=== PATIENT | male | born 2000 | race Two or more races ===

== ENCOUNTER 2023-12-19 15:48 | Emergency (ER) | payer OTHER ==
[~2023-12-19] VITALS: Ht 180.3 cm; Wt 65.4 kg
[2023-12-19 17:59] LABS: BASO % 0.5 % (0.0-1.0); EOS # 0.1 10^3/uL (0.0-0.5); EOS % 0.7 % (0.0-3.0); HEMATOCRIT 45.4 % (42.0-52.0); HEMOGLOBIN 15.4 g/dl (13.5-17.5); LYMPH # 1.8 10^3/uL (1.5-5.0); LYMPH % 21.4 % (24.0-44.0); MEAN CORPUSCULAR HEMOGLOBIN 29.5 pg (27.0-33.0); MEAN CORPUSCULAR HGB CONC 33.9 g/dl (32.0-36.5); MONO # 0.6 10^3/uL (0.0-0.8); MONO % 6.5 % (2.0-8.0); NEUTROPHILS # 6.1 10^3/uL (1.5-8.5); NEUTROPHILS % 70.7 % (36.0-66.0); PLATELET COUNT, AUTOMATED 291 10^3/uL (150-450); RED BLOOD COUNT 5.22 10^6/uL (4.30-6.10); WHITE BLOOD COUNT 8.6 10^3/uL (4.0-10.0)
[2023-12-19 18:05] LABS: LIPASE 45 U/L (12-53)
[2023-12-19 18:07] LABS: ALBUMIN 4.6 G/DL (3.2-5.2); ALKALINE PHOSPHATASE 65 U/L (46-116); ALT/SGPT 13 U/L (7.0-40); AST/SGOT < 8 U/L (<34); BILIRUBIN,DIRECT 0.4 MG/DL (<0.4); BILIRUBIN,TOTAL 1.2 MG/DL (0.3-1.2); TOTAL PROTEIN 7.4 G/DL (5.7-8.2)
[2023-12-19] MEDS: MAALOX 30 ML SUSP *UDC PO ONE (19:34)
[2023-12-19] MEDS: KETOROLAC 30 MG/ML 1ML VIAL IV ONE (19:34)
[2023-12-19] MEDS ORDERED: OMEP-173 PO (20:02)
[2023-12-19] MEDS ORDERED: MIRA3350 PO (20:02)
[2023-12-19 20:24] VITALS: BP 120/73; TEMP 97.3; O2SAT 99
== END 2023-12-19 20:27 | disposition home or self-care (01) ==
LOC: M ED 15:48
DX: K59.00 Constipation, unspecified (principal); Z88.3 Allergy status to other anti-infective agents
CPT/HCPCS: 74018; 80047; 80076; 83690; 85025; 96374; 99284; J1885